=== PATIENT | female | born 1990 | race Caucasian/White ===

== ENCOUNTER → 2019-07-06 | Outpatient (CLI) | payer BC ==
--- NOTE | 2019-07-06 09:41 | Diagnostic Imaging Report ---
EXAMINATION: Right knee 3 views HISTORY: KNEE PAIN RIGHT COMPARISON: None available. FINDINGS: Alignment is normal. No fracture is seen. Joint spaces are normal. No joint effusion is seen. IMPRESSION: 1. Normal right knee radiographs. Dictated by: Dictated on workstation # [id number]
== END ==
LOC: RAD FS 09:22
PROVIDERS: ATTEND Nurse Practitioner
DX: M25.561 Pain in right knee (principal)
CPT/HCPCS: 73562